=== PATIENT | female | born 1945 | race Caucasian/White ===

== ENCOUNTER 2021-08-26 21:36 | Emergency (ER) | payer OTHER ==
[~2021-08-26] VITALS: Ht 157.5 cm; Wt 65.8 kg
--- NOTE | 2021-08-26 21:47 | NUR ---
Patient triaged and placed ON AMBULANCE GURNEY. VSS and patient appears in no acute distress at this time. Accompanied by EMS, awaiting available bed, and MD notified of need for MSE.
[2021-08-26 21:48] VITALS: BP_SYST 152
--- NOTE | 2021-08-26 22:52 | NUR ---
Patient to ER bed 6 to gown for evaluation. Side rails up. Report given to Chandni GOODRICH.
--- NOTE | 2021-08-26 23:21 | NUR ---
patient brought in from home complaining of right facial pain starting today. patient has history of trigeminal neuralgia. pain 12/11. no other complaints/injuries per patient or as noted.
--- NOTE | 2021-08-26 23:33 | NUR ---
ANDRIA Mireles at bedside examining patient.
[2021-08-26] MEDS ORDERED: NEU300 PO (23:37)
[2021-08-26] MEDS ORDERED: IBUP-1969 PO (23:37)
[2021-08-26] MEDS ORDERED: HYDR-3917 PO (23:37)
[2021-08-26] MEDS ORDERED: MORPHINE 4 MG INJ. 4 MG/ML VIAL IM ONE (23:45)
[2021-08-27] MEDS ORDERED: HYDROmorphone 1 MG/ML INJ. CARTRIDGE IVP ONE (00:45)
[2021-08-27] MEDS ORDERED: HYDROmorphone 1 MG/ML INJ. CARTRIDGE IM ONE (00:45)
[2021-08-27 00:50] VITALS: BP_SYST 112
--- NOTE | 2021-08-27 00:55 | NUR ---
Patient given written and verbal discharge instructions and verbalizes understanding. ER MD discussed with patient the results and treatment provided. Patient in stable condition. ID arm band removed. Rx of norco, ibuprofen and neurontin given. Patient educated on pain management and to follow up with PMD. Pain Scale 0/10 Opportunity for questions provided and answered. Medication side effect fact sheet provided.
== END 2021-08-27 00:50 | disposition home or self-care (01) ==
LOC: SED 21:36
DX: G50.0 Trigeminal neuralgia (principal); Z88.2 Allergy status to sulfonamides; Z79.899 Other long term (current) drug therapy
CPT/HCPCS: 96372; 99284; J1170; J2270